=== PATIENT | female | born 1970 | race Caucasian/White ===

== ENCOUNTER 2017-03-04 10:52 | Emergency (ER) | payer OTHER ==
[2017-03-04 11:38] LABS: BASOPHILS 0.5 %; BASOPHILS ABSOLUTE 0.05 10/3/uL (0.0-0.16); HEMOGLOBIN 12.3 g/dL (12.0-16.0); LYMPHOCYTES 41.3 %; LYMPHOCYTES ABSOLUTE 4.07 10/3/uL (0.67-4.30); MEAN CORPUS HGB CONC 33.2 g/dL (32.0-36.0); MEAN CORPUSCULAR HEMOGLOB 31.1 pg (26.0-34.0); MEAN CORPUSCULAR VOLUME 93.4 fL (80-100); MEAN PLATELET VOLUME 8.9 fL (9.2-13.0); MONOCYTES 4.7 %; MONOCYTES ABSOLUTE 0.46 10/3/uL (0.21-1.20); NEUTROPHILS 52.5 %; NEUTROPHILS ABSOLUTE 5.17 10/3/uL (2.02-8.40); PLATELET COUNT 409 10/3/uL (150-400); RED CELL COUNT 3.96 10/6/uL (4.0-5.6); WHITE BLOOD CELLS 9.9 10/3/uL (4.5-10.5)
[2017-03-04 11:41] LABS: MANUAL DIFF NO %
[2017-03-04 11:42] LABS: ASCORBIC ACID (UR NOT ORDER) NEG (NEG); BILIRUBIN, URINE NEGATIVE (NEG); ER URINALYSIS TAT 0 Hrs 10 Mins; KETONE, URINE NEGATIVE (NEG); LEUKOCYTE ESTERASE(NOT OR NEG (NEG); NITRITE (URINE) NEG (NEG); WBC (NOT ORDERED) (RFLEX) < 1 (0-5)
[2017-03-04 11:50] LABS: A/G RATIO 1.1 (0.7-1.9); ALBUMIN 4.2 G/DL (3.5-5.0); ALKALINE PHOSPHATASE 77 U/L (45-117); BUN (BLOOD UREA NITROGEN) 5 MG/DL (6-23); CALCIUM, SERUM 9.6 MG/DL (8.5-10.4); CHLORIDE, SERUM 109 MMOL/L (96-112); CO2 (CARBON DIOXIDE) 28 MMOL/L (24-34); CREATININE 0.67 MG/DL (0.55-1.02); GFR AFRICAN AMERICAN 122 ML/MIN (>=60); GFR NON AFRICAN AMERICAN 105 ML/MIN (>=60); GLOBULIN 3.7 G/DL (2.5-4.1); GLUCOSE, SERUM 92 MG/DL (60-99); POTASSIUM, SERUM 3.7 MMOL/L (3.5-5.3); SGOT(AST) 12 U/L (5-40); SGPT(ALT) 17 U/L (5-65); SODIUM, SERUM 144 MMOL/L (135-148); TOTAL BILIRUBIN 0.2 MG/DL (0-1.2); TOTAL PROTEIN 7.9 G/DL (6.0-8.5)
== END 2017-03-04 14:16 | disposition home or self-care (01) ==
LOC: ER 10:52
PROVIDERS: Physician Assistant
DX: R10.11 Right upper quadrant pain (principal); F17.200 Nicotine dependence, unspecified, uncomplicated; Z88.5 Allergy status to narcotic agent; Z88.8 Allergy status to other drugs, medicaments and biological substances
CPT/HCPCS: 74176; 80053; 81001; 82150; 83690; 85025; 96372; 99284; J1170; J2405

== ENCOUNTER 2017-05-30 21:00 | Inpatient (IN) | payer OTHER ==
[~2017-05-30] VITALS: Ht 167.6 cm; Wt 64.1 kg
--- NOTE | ~2017-05-30 | OP ---
Record Of Operation [facility] [address] [place]. [address] NAME: TANISHA PRITCHARD : 72 STATUS : ADM IN [facility]#: [id number] AGE: 47 ADM/REG DATE : 05/31/17 MR#: [id number] REPORT SERV DATE: 05/31/17 DICTATED BY: ILIR SALINAS DATE: 05/31/17 REPORT STATUS : Draft TRANSCRIBED BY: MODL DATE: 05/31/17 DATE OF PROCEDURE: 05/31/2017 PREOPERATIVE DIAGNOSES: 1. Right tibia shaft fracture. 2. Right tibia intra-articular fracture weightbearing surface. POSTOPERATIVE DIAGNOSES: 1. Right tibia shaft fracture. 2. Right tibia intra-articular fracture weightbearing surface. PROCEDURE: 1. Open treatment of the right tibia shaft fracture with intramedullary nail. 2. Open treatment of the weightbearing surface with internal fixation of the distal tibia. ANESTHESIA: General. ESTIMATED BLOOD LOSS: 100 mL. IMPLANTS: 1. [place], size 9 x 315 nail. 2. 5.0 interference screws x4. 3. 4.0 cannulated screws x2. 4. 5-mm end cap. SPECIMEN: None. ANTIBIOTICS: Ancef given prior to incision. HISTORY: The patient is a 47-year-old female, who fell yesterday at a camp site, twisted her leg and fractured her tibia and had a spiral fracture of her tibia and proximal fibula and that went all the way into the weightbearing surface of the tibia. She was admitted overnight, had a CT scan, which revealed a fracture of the weightbearing surface. Tear extended from the fracture site. We discussed risks and benefits of surgery, nonoperative treatment with her, and she elected to proceed after discussing these risks. We discussed risks including cardiopulmonary complication, anesthesia, damage to surrounding tissues, malunion, nonunion, failure of implants, infection, and DVT. After discussing these risks, she elected to proceed. OPERATIVE NOTE: The patient was seen in the preoperative area, consented, and marked. We answered all questions she had to her satisfaction. She was taken to take back to the operative suite and placed in supine position. Underwent general anesthesia. We prepped and draped the right leg in sterile fashion then paused to perform a time-out confirming the correct patient, procedure, diagnosis, and extremity. We started with an incision directly over the medial malleolus. I used fluoroscopy to place 2 guide pin just above the weightbearing surface perpendicular to the fracture site. I then placed 2 screws across the Record Of Operation [facility] [address] [place]. [address] NAME: TANISHA PRITCHARD : 72 STATUS : ADM IN PAT#: [id number] AGE: 47 ADM/REG DATE : 05/31/17 MR#: [id number] REPORT SERV DATE: 05/31/17 DICTATED BY: ILIR SALINAS DATE: 05/31/17 REPORT STATUS : Draft TRANSCRIBED BY: MODL DATE: 05/31/17 weightbearing surface proximal to the joint line to fixate this intra-articular fracture of the distal tibia. That was completed, and I made an incision directly over the patellar tendon, dissected down the patellar tendon. I retracted it laterally and then got my starting point under fluoroscopic guidance. I then reamed over my guide pin and entered the tibia. I advanced the guidewire all the way down into the tibia to the fracture site. I then reduced the fracture site. I placed a clamp on it and then passed the guidewire all the way down distally to the physeal scar. We then reamed over this up to 10.5, and then measured for a 9 mm nail. We measured it to be 315 mm. I then passed our nail 9 x 315 down over the guidewire. When it was passed, we locked it proximally with 2 screws and then distally with 2 screws under fluoroscopic guidance. Once I had completed with fixation, I took a final x-rays in AP and lateral planes at the knee, ankle, and fracture sites and showed anatomic reduction. Please note, I did make a small window to guide anatomic reduction and actually clamped the fracture site to hold it reduced. We used fluoroscopic guidance throughout the process to guide our implant placement. We took our final x-rays, irrigated all the wounds, closed the wounds in the subcutaneous tissues, deep tissues, and the skin. She was then placed in sterile dressing, and then placed in a boot. She was awakened. No complications, taken to PACU in stable condition. She will be admitted to the floor for monitoring overnight. She will be nonweightbearing and do physical therapy tomorrow. MUMTAZ/ROSEMARIE Ilir Salinas MD / [id number] CC: Rylee Lara MD
--- NOTE | ~2017-05-30 | HP ---
History And Physical [facility] [id number] [place]. [address] NAME: TANISHA PRITCHARD : 72 STATUS : ADM IN [facility]#: [id number] AGE: 47 ADM/REG DATE : 05/31/17 MR#: [id number] REPORT SERV DATE: 05/31/17 DICTATED BY: ILIR YOON DATE: 05/31/17 REPORT STATUS : Draft TRANSCRIBED BY: MODVini DATE: 05/31/17 DATE OF ADMISSION: 05/31/2017 CHIEF COMPLAINT: Right tibia fracture. HISTORY OF PRESENT ILLNESS: The patient is a 47-year-old female, who was at [facility] last night. She said she slipped and twisted her leg, felt a pop in her leg. She was brought to the emergency department and found to have a midshaft tibia fracture on the right side as well as the medial malleolus and a proximal fibula fracture from a rotational type injury. She was placed in a splint and admitted to the hospital for definitive treatment. She complains of pain in her leg, but denies any other pain. PAST MEDICAL HISTORY: Hypercholesterolemia, blood pressure, asthma, and emphysema. PAST SURGICAL HISTORY: Hysterectomy, cholecystectomy. ALLERGIES: BENZOIC ACID, METHYLENE BLUE, METHENAMINE, HYOSCYAMINE, ATROPINE. MEDICATIONS: None. SOCIAL HISTORY: She is and she is a smoker. FAMILY HISTORY: Noncontributory. REVIEW OF SYSTEMS: Times 10 is negative, except for above. PHYSICAL EXAMINATION: GENERAL: Well-developed, well-nourished female, in no acute distress. HEENT: Normocephalic, atraumatic. RESPIRATORY: Nonlabored respirations. Equal chest rise bilaterally. EXTREMITIES: No cyanosis, clubbing, or edema with the exception of the right lower extremity. MUSCULOSKELETAL: She is in a splint. Right lower extremity, she will move her toes. Less than 2 seconds cap refill. SKIN: No apparent rashes or lesions. PSYCH: Appropriate mood and affect. NEURO: Alert and oriented x3. LABORATORY DATA: X-rays show a midshaft tibia fracture with a proximal fibula fracture, nondisplaced. The midshaft tibia fracture is a spiral fracture, which is mildly displaced. She also has a medial malleolus fracture on the right side as well. ASSESSMENT AND PLAN: Midshaft spiral oblique fracture with medial malleolus fracture and proximal fibular fracture. Plan is for intramedullary nail of the tibia with fixation of the medial malleolus of the fibula as well. We discussed risks and benefits of surgery History And Physical [address] [place]. [address] NAME: TANISHA PRITCHARD : 72 STATUS : ADM IN PAT#: [id number] AGE: 47 ADM/REG DATE : 05/31/17 MR#: [id number] REPORT SERV DATE: 05/31/17 DICTATED BY: ILIR YOON DATE: 05/31/17 REPORT STATUS : Draft TRANSCRIBED BY: MODL DATE: 05/31/17 today with her and she wants to proceed. We will plan for operative intervention this morning for her tibia fracture. MUMTAZ/ROSEMARIE Ilir Yoon MD / [id number]
[2017-05-30 23:18] LABS: BASOPHILS 0.3 %; BASOPHILS ABSOLUTE 0.06 10/3/uL (0.0-0.16); EOSINOPHILS 0.4 %; EOSINOPHILS ABSOLUTE 0.07 10/3/uL (0.0-0.53); HEMOGLOBIN 10.5 g/dL (12.0-16.0); IMMATURE GRANULOCYTES 0.2 %; IMMATURE GRANULOCYTES ABSOLUTE 0.04 10/3/uL (0.0-0.11); LYMPHOCYTES 13.1 %; LYMPHOCYTES ABSOLUTE 2.37 10/3/uL (0.67-4.30); MEAN CORPUS HGB CONC 33.4 g/dL (32.0-36.0); MEAN CORPUSCULAR HEMOGLOB 31.5 pg (26.0-34.0); MEAN CORPUSCULAR VOLUME 94.3 fL (80-100); MEAN PLATELET VOLUME 8.4 fL (9.2-13.0); MONOCYTES ABSOLUTE 0.91 10/3/uL (0.21-1.20); NEUTROPHILS ABSOLUTE 14.64 10/3/uL (2.02-8.40); PLATELET COUNT 386 10/3/uL (150-400); RBC DISTRIBUTION WIDTH 14.6 % (12.0-16.0); RED CELL COUNT 3.33 10/6/uL (4.0-5.6)
[2017-05-30 23:19] LABS: ER CBC TAT 0 Hrs 05 Mins; HEMATOCRIT 31.4 % (36.0-48.0); MANUAL DIFF NO %; WHITE BLOOD CELLS 18.1 10/3/uL (4.5-10.5)
[2017-05-30 23:32] LABS: CALCIUM, SERUM 9.1 MG/DL (8.5-10.4); CHLORIDE, SERUM 102 MMOL/L (96-112); CO2 (CARBON DIOXIDE) 29 MMOL/L (24-34); CREATININE 0.72 MG/DL (0.55-1.02); GFR AFRICAN AMERICAN 116 ML/MIN (>=60); GFR NON AFRICAN AMERICAN 100 ML/MIN (>=60); GLUCOSE, SERUM 110 MG/DL (60-99); POTASSIUM, SERUM 4.2 MMOL/L (3.5-5.3)
[2017-05-30 23:38] LABS: BUN (BLOOD UREA NITROGEN) 11 MG/DL (6-23); SODIUM, SERUM 134 MMOL/L (135-148)
[2017-05-31] MEDS ORDERED: LIPITOR20 PO (14:57)
[2017-05-31] MEDS ORDERED: PROVHFA INH (14:58)
[2017-05-31] MEDS ORDERED: ALEVE220 MG PO (14:58)
[2017-05-31] MEDS ORDERED: T PO (14:58)
[2017-06-01 05:03] LABS: CALCIUM, SERUM 8.5 MG/DL (8.5-10.4); CHLORIDE, SERUM 107 MMOL/L (96-112); CO2 (CARBON DIOXIDE) 29 MMOL/L (24-34); CREATININE 0.62 MG/DL (0.55-1.02); GFR AFRICAN AMERICAN 125 ML/MIN (>=60); GFR NON AFRICAN AMERICAN 108 ML/MIN (>=60); GLUCOSE, SERUM 104 MG/DL (60-99)
[2017-06-01 05:05] LABS: BUN (BLOOD UREA NITROGEN) 5 MG/DL (6-23); SODIUM, SERUM 141 MMOL/L (135-148)
[2017-06-01 06:30] LABS: HEMOGLOBIN 7.8 g/dL (12.0-16.0)
[2017-06-02 05:22] LABS: HEMATOCRIT 22.6 % (36.0-48.0); HEMOGLOBIN 7.4 g/dL (12.0-16.0)
[2017-06-02] MEDS ORDERED: LOVENOX40 SC (09:37)
[2017-06-02] MEDS ORDERED: ZOFRAN4 PO (09:37)
[2017-06-02] MEDS ORDERED: OXYCOD PO (09:37)
[2017-06-02] MEDS ORDERED: FLEX PO (09:37)
== END 2017-06-02 11:13 | disposition home or self-care (01) | DRG 494 ==
LOC: ER 21:00 → 3SO 05-31 00:37
PROVIDERS: Orthopaedic Surgery Sports Medicine; Student in an Organized Health Care Education/Training Program
PROC: 0QSG06Z Reposition Right Tibia with Intramedullary Internal Fixation Device, Open Approach (ICD-10-PCS; principal; 2017-05-31 09:15)
PROC: 0QHG04Z Insertion of Internal Fixation Device into Right Tibia, Open Approach (ICD-10-PCS; 2017-05-31 09:15)
DX: S82.241A Displaced spiral fracture of shaft of right tibia, initial encounter for closed fracture (principal); I10 Essential (primary) hypertension; S82.831A Other fracture of upper and lower end of right fibula, initial encounter for closed fracture; W01.0XXA Fall on same level from slipping, tripping and stumbling without subsequent striking against object, initial encounter; J43.9 Emphysema, unspecified; E78.00 Pure hypercholesterolemia, unspecified; F17.210 Nicotine dependence, cigarettes, uncomplicated; Z90.710 Acquired absence of both cervix and uterus; Z90.49 Acquired absence of other specified parts of digestive tract; Z88.8 Allergy status to other drugs, medicaments and biological substances
CPT/HCPCS: 73590-RT; 73610-RT; 73700-RT; 76001; 80048; 85014; 85018; 85025; 88304; 88311; 96374; 96375; 97116-GP; 97161-GP; 99285; A9270-GY; C1713; C1769; J0690; J1170; J2250; J2270; J2370; J2405; J2710; J3010